=== PATIENT | male | born 2005 | race Caucasian/White ===

== ENCOUNTER 2024-03-14 16:18 | Emergency (ER) | payer OTHER ==
[2024-03-14] MEDS ORDERED: KETOROLAC TROMETHAMINE 60 MG/2 ML VIAL IM ONE (20:00)
[2024-03-14] MEDS ORDERED: diazePAM 10 MG/2 ML SYR IM ONE (20:00)
[2024-03-14] MEDS ORDERED: CYCLOBENZAPRINE10 MG PO (20:41)
[2024-03-14] MEDS ORDERED: CYCLOBENZAPRINE HCL 10 MG HOME.PACK PO ONE (20:45)
[2024-03-14] MEDS ORDERED: methylPREDNISolone 4 MG HOME.PACK PO ONE (20:45)
[2024-03-14 21:08] VITALS: BP 126/72
== END 2024-03-14 21:08 | disposition home or self-care (01) ==
LOC: ED 16:18
DX: S39.012A Strain of muscle, fascia and tendon of lower back, initial encounter (principal); X50.0XXA Overexertion from strenuous movement or load, initial encounter
CPT/HCPCS: 72100; 96372; 99283; J1885; J3360